=== PATIENT | male | born 1970 | race Caucasian/White ===

== ENCOUNTER 2018-07-12 10:59 | Emergency (ER) | payer SELFPAY ==
[~2018-07-12] VITALS: Ht 175.3 cm; Wt 70.3 kg
[2018-07-12 11:05] VITALS: BP 152/100
[2018-07-12] MEDS ORDERED: HYDR25TA PO (11:33)
[2018-07-12] MEDS ORDERED: PERM60CR12 TP (11:33)
--- NOTE | 2018-07-12 11:34 | PHYS DOC ---
Past History Past Medical History: Depression Past Surgical History: No Surgical History Smoking: Less than 1pk/day Alcohol Use: None Drug Use: None Adult General Chief Complaint Chief Complaint: INSECT BITE HPI HPI Patient is a 47 year old male who presents with complaining of pruritic rash for 2 or 3 weeks that gradually getting force. Patient complaining of increasing of itching during the night. Patient states 2 other family members had the same rash. Review of Systems Review of Systems Constitutional: Denies fever or chills [] Eyes: Denies change in visual acuity, redness, or eye pain [] HENT: Denies nasal congestion or sore throat [] Respiratory: Denies cough or shortness of breath [] Cardiovascular: No additional information not addressed in HPI [] GI: Denies abdominal pain, nausea, vomiting, bloody stools or diarrhea [] : Denies dysuria or hematuria [] Musculoskeletal: Denies back pain or joint pain [] Integument: Reports rash and itching Neurologic: Denies headache, focal weakness or sensory changes [] Endocrine: Denies polyuria or polydipsia [] All other systems were reviewed and found to be within normal limits, except as documented in this note. Allergies Allergies Allergies Coded Allergies Type Severity Reaction Last Updated Verified bee venom (honey bee) Allergy Unknown 09/27/13 Yes Physical Exam Physical Exam Constitutional: Well developed, mild distress, non-toxic appearance. [] HENT: Normocephalic, atraumatic Eyes: PERRLA, EOMI, conjunctiva normal, no discharge. [] Neck: Normal range of motion, no tenderness, supple, no stridor. [] Cardiovascular:Heart rate regular rhythm, no murmur [] Lungs & Thorax: Bilateral breath sounds clear to auscultation [] Skin: Warm, dry, pruritic rash in the extremities and trunk Back: No tenderness, no CVA tenderness. [] Extremities: No tenderness, no cyanosis, no clubbing, ROM intact, no edema. [] Neurologic: Alert and oriented X 3, normal motor function, normal sensory function, no focal deficits noted. [] Psychologic: Affect normal, judgement normal, mood normal. [] EKG EKG [] Radiology/Procedures Radiology/Procedures [] Course & Med Decision Making Course & Med Decision Making discharge: I've spoken with the patient and/or caregivers. I've explained the patient's condition, diagnosis and treatment plan based on information available to me at this time. I've answered the patient's and/or caregivers questions and addressed any concerns. The patient and/or caregivers have a good understanding the patient's diagnosis, condition and treatment plan as can be expected at this point. Vital signs have been stabilized. The patient's condition is stable for discharge from the emergency department. The patient will pursue further outpatient evaluation with her primary care provider or other designated consulting physician as outlined in the discharge instructions. Patient and/or caregivers are agreeable to this plan of care and follow-up instructions have been explained in detail. The patient and/or caregivers have received these instructions in written format and expressed understanding of these discharge instructions. The patient and her caregivers are aware that if any significant change in condition or worsening of symptoms should prompt him to immediately return to this of the closest emergency department. If an emergent department is not readily available I would encourage him to call 911. Dragon Disclaimer Dragon Disclaimer This electronic medical record was generated, in whole or in part, using a voice recognition dictation system. Departure Departure: Impression: Primary Impression: Scabies Disposition: HOME, SELF-CARE (at 1131) Condition: STABLE Referrals: PCP,NO (PCP) Patient Instructions: Scabies Additional Instructions: Follow-up with your primary care physician in 3-5 days Return to ER if not getting better Scripts Hydroxyzine Hcl (HYDROXYZINE HCL) 25 Mg Tablet 1 TAB PO TID PRN for ITCHING, #30 TAB Prov: STACIE EDWARDS MD 07/12/18 Permethrin (PERMETHRIN) 60 Gm Cream..g. 1 CHAO TP ONCE, #60 GM 1 Refill Prov: STACIE EDWARDS MD 07/12/18 STACIE EDWARDS MD Jul 12, 2018 11:33
== END 2018-07-12 11:47 | disposition home or self-care (01) ==
LOC: ER 10:59
DX: B86 Scabies (principal); F17.200 Nicotine dependence, unspecified, uncomplicated; Z91.030 Bee allergy status
CPT/HCPCS: 99283

== ENCOUNTER 2020-08-18 16:46 | Inpatient (IN) | payer SELFPAY ==
[~2020-08-18] VITALS: Ht 172.7 cm; Wt 64.8 kg
[~2020-08-18 16:46] MED LIST: HYDR25TA PO; PERM60CR12 TP
--- NOTE | 2020-08-18 17:21 | PHYS DOC ---
Past History Past Medical History: Depression, Diabetes (RANJAN BHANDARI MD) Past Surgical History: No Surgical History (RANJAN BHANDARI MD) Smoking: Less than 1pk/day Alcohol Use: None Drug Use: None (RANJAN BHANDARI MD) General Adult EDM: Chief Complaint: SYNCOPE HPI: HPI: Patient is a 49-year-old male who is in the parking lot at [facility] when he felt a lightening bolt-like sensation, pressure chest and then he says he passed out for 20 minutes. Patient does not endorse any seizure activity and has never had a headache like this before. Patient has been in his normal state of health other than having some allergy for the last couple months. Patient does not have any current shortness of breath but has some shortness of breath with the chest pain that was sharp and stabbing immediately prior to the syncopal event. Patient now only has some mild left-sided abdominal pain. His abdominal pain is worse with palpation and better with rest. (RANJAN BHANDARI MD) Review of Systems: Review of Systems: Constitutional: Denies fever or chills Eyes: Denies change in visual acuity HENT: Denies nasal congestion or sore throat Respiratory: Denies cough but has some transient shortness of breath Cardiovascular: Patient has some transient shortness of breath but denies edema GI: Patient has some mild left abdominal pain but no, nausea, vomiting, bloody stools or diarrhea : Denies dysuria Musculoskeletal: Denies back pain or joint pain Integument: Denies rash Neurologic: Denies headache, focal weakness or sensory changes Endocrine: Denies polyuria or polydipsia Lymphatic: Denies swollen glands Psychiatric: Denies depression or anxiety (RANJAN BHANDARI MD) Allergies: Allergies: Allergies Coded Allergies Type Severity Reaction Last Updated Verified venom-honey bee Allergy Unknown 09/27/13 Yes (RANJAN BHANDARI MD) Physical Exam: PE: Constitutional: Well developed, well nourished, no acute distress, non-toxic appearance. [] HENT: Normocephalic, atraumatic, bilateral external ears normal, no oral lesions, nose normal. [] Eyes: PERRLA, EOMI, conjunctiva normal, no discharge. [] Neck: Normal range of motion, no tenderness, supple, no stridor. [] Cardiovascular:Heart rate regular rhythm, peripheral pulses are intact, cap refill is less than 2 seconds Lungs & Thorax: Bilateral breath sounds clear, no respiratory distress Abdomen: soft, mild tenderness to the left side of the abdomen, no masses, no pulsatile masses. [] Skin: Warm, dry, no erythema, no rash. [] Back: No tenderness, no CVA tenderness. [] Extremities: No tenderness, no cyanosis, no clubbing, ROM intact, no edema. [] Neurologic: Alert and oriented X 3, normal motor function, normal sensory function, no focal deficits noted. [] Psychologic: Affect normal, judgement normal, mood normal. [] (RANJAN BHANDARI MD) Current Patient Data: Labs: Laboratory Tests Test 08/18/20 17:11 Glucose (Fingerstick) 370 mg/dL (70-99) H (RANJAN BHANDARI MD) Labs: Laboratory Tests Test 08/18/20 17:11 08/18/20 17:15 Glucose (Fingerstick) 370 mg/dL White Blood Count 5.9 x10^3/uL Red Blood Count 4.35 x10^6/uL Hemoglobin 13.5 g/dL Hematocrit 40.4 % Mean Corpuscular Volume 93 fL Mean Corpuscular Hemoglobin 31 pg Mean Corpuscular Hemoglobin Concent 33 g/dL Red Cell Distribution Width 12.8 % Platelet Count 225 x10^3/uL Neutrophils (%) (Auto) 68 % Lymphocytes (%) (Auto) 24 % Monocytes (%) (Auto) 6 % Eosinophils (%) (Auto) 2 % Basophils (%) (Auto) 1 % Neutrophils # (Auto) 4.0 x10^3uL Lymphocytes # (Auto) 1.4 x10^3/uL Monocytes # (Auto) 0.3 x10^3/uL Eosinophils # (Auto) 0.1 x10^3/uL Basophils # (Auto) 0.0 x10^3/uL D-Dimer (Meron) 0.60 mg/L Urine Collection Type Unknown Urine Color Yellow Urine Clarity Clear Urine pH 5.0 Urine Specific Rusk 1.020 Urine Protein 100 mg/dl Urine Glucose (UA) >=1000 mg/dL Urine Ketones (Stick) Neg mg/dL Urine Blood Mod Urine Nitrite Neg Urine Bilirubin Neg Urine Urobilinogen Dipstick 0.2 mg/dL Urine Leukocyte Esterase Neg Urine RBC 0 /HPF Urine WBC 0 /HPF Urine Squamous Epithelial Cells Few /LPF Urine Bacteria 0 /HPF Sodium Level 133 mmol/L Potassium Level 4.2 mmol/L Chloride Level 99 mmol/L Carbon Dioxide Level 25 mmol/L Anion Gap 9 Blood Urea Nitrogen 16 mg/dL Creatinine 1.3 mg/dL Estimated GFR (Cockcroft-Gault) 58.4 BUN/Creatinine Ratio 12 Glucose Level 338 mg/dL Lactic Acid Level 1.1 mmol/L Calcium Level 9.0 mg/dL Total Bilirubin 1.0 mg/dL Aspartate Amino Transf (AST/SGOT) 12 U/L Alanine Aminotransferase (ALT/SGPT) 20 U/L Alkaline Phosphatase 38 U/L Troponin I Quantitative 0.017 ng/mL Total Protein 6.7 g/dL Albumin 3.6 g/dL Albumin/Globulin Ratio 1.2 Lipase 800 U/L Urine Opiates Screen Neg Urine Methadone Screen Neg Urine Barbiturates Neg Urine Phencyclidine Screen Neg Urine Amphetamine/Methamphetamine Neg Urine Benzodiazepines Screen Neg Urine Cocaine Screen Neg Urine Cannabinoids Screen Pos Ethyl Alcohol Level < 10 mg/dL Urine Ethyl Alcohol Neg Current Medications Medications (Trade) Dose Ordered Sig/Leobardo Route PRN Reason Start Time Stop Time Status Last Admin Dose Admin Iohexol (Omnipaque 350 Mg/ml) 100 ml 1X ONCE IV 08/18/20 18:00 08/18/20 18:01 DC 08/18/20 17:58 Info (Do NOT chart on this entry -- for MONITORING) 1 each PRN DAILY PRN MC SEE COMMENTS 08/18/20 18:00 08/20/20 17:59 (IDA LAWRENCE DO) EKG: EKG: [] EKG interpreted by me normal sinus rhythm with rate 87 left axis deviation left anterior hemiblock, normal intervals, normal ST segments (RANJAN BHANDARI MD) EKG: EKG is normal sinus rhythm, rate 87, leftward axis, nonspecific ST segment changes, not STEMI (IDA LAWRENCE DO) Radiology/Procedures: Radiology/Procedures: [] (RANJAN BHANDARI MD) Radiology/Procedures: [address] [address] IMAGING REPORT Signed PATIENT: KORY COTTON ACCOUNT: [id number] : 1970 LOCATION: ER AGE: 49 SEX: M EXAM STATUS: REG ER ORD. PHYSICIAN: RANJAN BHANDARI MD REASON: SYNCOPE PROCEDURE: CT HEAD WO CONTRAST CT head without contrast PQRS statement: CT scans at this facility use dose reduction including either automated exposure control, iterative reconstructions, and /or weight based radiation dosing via mA and kV modification when appropriate to reduce radiation dose to as low as reasonably achievable. HISTORY: Syncope. FINDINGS: There is a subtle 2 cm hypodensity inferior left cerebellum hemisphere on images 4-5, it is uncertain if this is due to artifact however given that this is a focal asymmetry this raises the possibility of a true lesion either due to infarct or ill-defined mass. There is no associated mass effect or swelling. No cerebellar tonsil herniation or crowding at the foramen magnum. Remainder of the brain demonstrates no mass or infarct. No intracranial hemorrhage. No hydrocephalus. Orbits, mastoids and bones are unremarkable. IMPRESSION: Indistinct 2 cm hypodensity of the inferior left cerebellum. This may be a streak artifact from the skull base however given the focal asymmetric nature this also raises the possibility of an acute ischemic infarct or an ill-defined mass. There is no associated mass effect or swelling evident. This could be further assessed with MR imaging. Electronically signed by: Brant Wood MD (08/18/2020 6:13 PM) [facility] [place] DICTATED AND SIGNED BY: BRANT WOOD MD DATE: 08/18/201812 CC: RANJAN BHANDARI MD; PCP,NO; IDA LAWRENCE DO ~ [address] [address] IMAGING REPORT Signed PATIENT: KORY COTTON ACCOUNT: [id number] : 1970 LOCATION: ER AGE: 49 SEX: M EXAM STATUS: REG ER ORD. PHYSICIAN: RANJAN BHANDARI MD REASON: SYNCOPE PROCEDURE: PORTABLE CHEST 1V AP chest x-ray HISTORY: Syncope. COMPARISON: Chest x-ray September 27, 2013. FINDINGS: Heart size is normal. Mediastinal silhouette is normal. No pneumothorax, pulmonary opacities or pleural effusions. Bones are unremarkable. IMPRESSION: No acute process. Electronically signed by: Brant Wood MD (08/18/2020 6:20 PM) [facility] [place] DICTATED AND SIGNED BY: BRANT WOOD MD DATE: 08/18/201819 CC: RANJAN BHANDARI MD; PCP,NO; IDA LAWRENCE DO ~ [place] [address] IMAGING REPORT Signed PATIENT: KORY COTTON ACCOUNT: [id number] : 1970 LOCATION: ER AGE: 49 SEX: M EXAM STATUS: REG ER ORD. PHYSICIAN: RANJAN BHANDARI MD REASON: R/O TAD/AAA, SYNCOPE PROCEDURE: CT ANGIO CHEST W ABD PEL W/ Examination: CT ANGIO CHEST W ABD PEL W/ History: Pain, SYNCOPE, left flank pain Comparison/Correlation: None Findings: Axial images of the chest, abdomen, and pelvis were obtained following IV contrast. Imaging of the chest was performed according to pulmonary arteriography protocol. Evaluation of the abdomen and pelvis is limited due to motion on multiple images. Pulmonary arterial vasculature is normal with no thromboembolic disease. No infiltrate or effusion. No enlarged lymph nodes, pneumothorax, or suspicious pulmonary nodule. Note is made of accessory short blind-ending bronchus arising from the right side of the distal trachea. 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 Opacification of the thoracic aorta is not adequate for arteriographic assessment. Thoracic aortic morphology is otherwise unremarkable. Liver, spleen, pancreas, adrenal glands, and kidneys are normal. Moderate quantity of stool in colon noted. Appendix is normal. No bowel obstruction or extraluminal gas. Mild circumferential wall thickening of the urinary bladder is noted. No abdominal aortic aneurysm. Opacification of the abdominal aorta with contrast is not of arteriographic density. No enlarged abdominal or pelvic lymph nodes. No ascites or pelvic free fluid. Bilateral L5 pars interarticularis fractures are present. Minimal antral listhesis of L5 on S1 noted. Impression: No PE or infiltrate. Minimal diverticulosis. 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 Bilateral L5 pars interarticularis fractures with mild anterolisthesis of L5 over S1. Aorta is grossly unremarkable. Opacification of the aorta is not of arteriographic quality. No dissection suggested. No aneurysm seen. If strong clinical concern is present, repeat imaging or other further evaluation would be advised. PQRS Compliance Statement: One or more of the following individualized dose reduction techniques were utilized for this examination: 1. Automated exposure control 2. Adjustment of the mA and/or kV according to patient size 3. Use of iterative reconstruction technique Electronically signed by: Karl Mcdonnell MD (08/18/2020 6:41 PM) [facility] (IDA LAWRENCE DO) Heart Score: Risk Factors: Risk Factors: DM, Current or recent (<one month) smoker, HTN, HLP, family history of CAD, obesity. Risk Scores: Score 0 - 3: 2.5% MACE over next 6 weeks - Discharge Home Score 4 - 6: 20.3% MACE over next 6 weeks - Admit for Clinical Observation Score 7 - 10: 72.7% MACE over next 6 weeks - Early Invasive Strategies (RANJAN BHANDARI MD) Course & Med Decision Making: Course & Med Decision Making Pertinent Labs and Imaging studies reviewed. (See chart for details) [] 49-year-old male presents with syncope event. Patient has some left abdominal pain on exam. Patient will get a CT angiogram to rule out aortic catastrophe. Labs and CTs are pending and care was signed out to Dr. Lawrence. (RANJAN BHANDARI MD) Course & Med Decision Making 1800 Care of patient assumed at shift change 1855 Dr. Martines is the accepting physician. Patient will admitted for treatment of pancreatitis as well as syncope. Patient has a known history of diabetes but has not been compliant with his diabetes medication. We will cycle his cardiac enzymes. As requested we will place patient on a clear liquid diet. Patient is alert awake with out any focal deficits or lateralizing signs. (IDA LAWRENCE DO) Dragon Disclaimer: Dragon Disclaimer: This electronic medical record was generated, in whole or in part, using a voice recognition dictation system. (RANJAN BHANDARI MD) Departure Departure: Impression: Primary Impression: Syncope Qualified Codes: R55 - Syncope and collapse Additional Impressions: Pancreatitis Qualified Codes: K85.90 - Acute pancreatitis without necrosis or infection, unspecified Hyperglycemia Disposition: ADMITTED INPT THIS HOSP Admitting Physician: Alok Martines (IDA LAWRENCE DO) Condition: STABLE Referrals: PCP,DEANA (PCP) RANJAN BHANDARI MD Aug 18, 2020 17:21 IDA LAWRENCE DO Aug 18, 2020 17:54
--- NOTE | 2020-08-18 17:26 | EKG ---
[address] [address] Test Date: 2020-08-18 Test Time: 17:13:12 Pat Name: KORY COTTON Department: Room: Gender: M Painting Manager: MILAD : 1970 Requested By: RANJAN BHANDARI Order Number: [id number] Reading MD: Measurements Intervals [place] Rate: 87 P: 48 MT: 140 QRS: -31 QRSD: 92 T: 57 QT: 366 QTc: 446 Interpretive Statements SINUS RHYTHM ABNORMAL LEFT AXIS DEVIATION LEFT ANTERIOR FASCICULAR BLOCK QRS(T) CONTOUR ABNORMALITY CONSISTENT WITH ANTEROSEPTAL INFARCT PROBABLY OLD ABNORMAL ECG RI6.02 No previous ECG available for comparison
[2020-08-18 17:47] LABS: BASO % 1 % (0-3); EOS # 0.1 x10^3/uL (0.0-0.7); EOS % 2 % (0-3); HEMATOCRIT 40.4 % (39.0-53.0); HEMOGLOBIN 13.5 g/dL (13.0-17.5); LYMPH # 1.4 x10^3/uL (1.0-4.8); LYMPH % 24 % (24-48); MEAN CORPUSCULAR HEMOGLOBIN 31 pg (25-35); MEAN CORPUSCULAR HGB CONC 33 g/dL (31-37); MEAN CORPUSCULAR VOLUME 93 fL (79-100); MONO # 0.3 x10^3/uL (0.0-1.1); MONO % 6 % (0-9); NEUT % 68 % (31-73); PLATELET COUNT 225 x10^3/uL (140-400); RED BLOOD COUNT 4.35 x10^6/uL (4.30-5.70); RED CELL DISTRIBUTION WIDTH 12.8 % (11.5-14.5); WHITE BLOOD COUNT 5.9 x10^3/uL (4.0-11.0)
[2020-08-18 17:56] LABS: BARBITURATES NEG (NEG); BENZODIAZEPINES NEG (NEG); CANNABINOIDS POS (NEG); COCAINE NEG (NEG); METHADONE NEG (NEG); OPIATES NEG (NEG); PHENCYCLIDINE NEG (NEG)
[2020-08-18 17:57] LABS: AMPHETAMINE/METHAMPHETAMINE NEG (NEG)
[2020-08-18] MEDS ORDERED: CONTRAST GIVEN. MC PRN (18:00)
[2020-08-18] MEDS ORDERED: IOHEXOL 350 MG/ML 100 ML VIAL. IV ONE (18:00)
[2020-08-18 18:11] LABS: CREATININE 1.3 mg/dL (0.7-1.3); GFR 58.4; POTASSIUM 4.2 mmol/L (3.5-5.1)
[2020-08-18 18:16] LABS: ALBUMIN 3.6 g/dL (3.4-5.0); ALBUMIN/GLOBULIN RATIO 1.2 (1.0-1.7); TOTAL PROTEIN 6.7 g/dL (6.4-8.2)
--- NOTE | 2020-08-18 18:16 | RAD ---
CT head without contrast PQRS statement: CT scans at this facility use dose reduction including either automated exposure control, iterative reconstructions, and /or weight based radiation dosing via mA and kV modification when appropriate to reduce radiation dose to as low as reasonably achievable. HISTORY: Syncope. FINDINGS: There is a subtle 2 cm hypodensity inferior left cerebellum hemisphere on images 4-5, it is uncertain if this is due to artifact however given that this is a focal asymmetry this raises the possibility of a true lesion either due to infarct or ill-defined mass. There is no associated mass effect or swelling. No cerebellar tonsil herniation or crowding at the foramen magnum. Remainder of the brain demonstrates no mass or infarct. No intracranial hemorrhage. No hydrocephalus. Orbits, mastoids and bones are unremarkable. IMPRESSION: Indistinct 2 cm hypodensity of the inferior left cerebellum. This may be a streak artifact from the skull base however given the focal asymmetric nature this also raises the possibility of an acute ischemic infarct or an ill-defined mass. There is no associated mass effect or swelling evident. This could be further assessed with MR imaging. Electronically signed by: Jewel Wood MD (08/18/2020 6:13 PM) [facility]
--- NOTE | 2020-08-18 18:24 | RAD ---
AP chest x-ray HISTORY: Syncope. COMPARISON: Chest x-ray September 27, 2013. FINDINGS: Heart size is normal. Mediastinal silhouette is normal. No pneumothorax, pulmonary opacities or pleural effusions. Bones are unremarkable. IMPRESSION: No acute process. Electronically signed by: Jewel Wood MD (08/18/2020 6:20 PM) [facility]
[2020-08-18 18:31] LABS: BACTERIA,URINE 0 /HPF (0-FEW); BILIRUBIN,URINE NEG (NEG); CLARITY,URINE CLEAR; COLOR,URINE YELLOW; GLUCOSE,URINE >=1000 mg/dL (NEG); NITRITE,URINE NEG (NEG); RBC,URINE 0 /HPF (0-2); SQUAMOUS EPITHELIAL CELL,UR FEW /LPF; UROBILINOGEN,URINE 0.2 mg/dL (0.2 mg/dL); WBC,URINE 0 /HPF (0-4)
--- NOTE | 2020-08-18 18:44 | RAD ---
Examination: CT ANGIO CHEST W ABD PEL W/ History: Pain, SYNCOPE, left flank pain Comparison/Correlation: None Findings: Axial images of the chest, abdomen, and pelvis were obtained following IV contrast. Imaging of the chest was performed according to pulmonary arteriography protocol. Evaluation of the abdomen and pelvis is limited due to motion on multiple images. Pulmonary arterial vasculature is normal with no thromboembolic disease. No infiltrate or effusion. No enlarged lymph nodes, pneumothorax, or suspicious pulmonary nodule. Note is made of accessory short blind-ending bronchus arising from the right side of the distal trachea. 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 Opacification of the thoracic aorta is not adequate for arteriographic assessment. Thoracic aortic morphology is otherwise unremarkable. Liver, spleen, pancreas, adrenal glands, and kidneys are normal. Moderate quantity of stool in colon noted. Appendix is normal. No bowel obstruction or extraluminal gas. Mild circumferential wall thickening of the urinary bladder is noted. No abdominal aortic aneurysm. Opacification of the abdominal aorta with contrast is not of arteriographic density. No enlarged abdominal or pelvic lymph nodes. No ascites or pelvic free fluid. Bilateral L5 pars interarticularis fractures are present. Minimal antral listhesis of L5 on S1 noted. Impression: No PE or infiltrate. Minimal diverticulosis. 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 Bilateral L5 pars interarticularis fractures with mild anterolisthesis of L5 over S1. Aorta is grossly unremarkable. Opacification of the aorta is not of arteriographic quality. No dissection suggested. No aneurysm seen. If strong clinical concern is present, repeat imaging or other further evaluation would be advised. PQRS Compliance Statement: One or more of the following individualized dose reduction techniques were utilized for this examination: 1. Automated exposure control 2. Adjustment of the mA and/or kV according to patient size 3. Use of iterative reconstruction technique Electronically signed by: Karl Mcdonnell MD (08/18/2020 6:41 PM) [facility]
[2020-08-18] MEDS ORDERED: ONDANSETRON PF 4 MG/2 ML VIAL. IVP PRN (19:15)
--- NOTE | 2020-08-18 20:10 | NUR ---
PATIENT ARRIVED TO UNIT VIA EMS. PATIENTS VS OBTAINED AND ARE STABLE. PATIENT IS ORIENTED TO UNIT AND PROCEDURE. PATIENT IS PLEASANT AND COOPERATIVE. TELE MONITOR APPLIED AND PATIENT IS OFFERED FOOD AND DRINK AND ACCEPTS. PATIENT IS RESTING IN ROOM AT THIS TIME. WILL CONTINUE TO MONITOR.
[2020-08-18 23:00] VITALS: BP 159/92
[2020-08-19 06:09] VITALS: BP 123/84
--- NOTE | 2020-08-19 08:51 | HP ---
ADMIT DATE: 08/18/2020 ATTENDING PHYSICIAN: Dr. Esteves. CHIEF COMPLAINT: Chest pain and near syncope. HISTORY OF PRESENT ILLNESS: The patient is a 49-year-old gentleman who works at [employer], returning shopping cart back to the store, he felt a lightning bolt sensation, chest pressure and he really did not pass out, but he got weak and went to the ground for about 20 minutes before he regained his composure. No seizure activity. He is a smoker. He is diabetic, but he is noncompliant. He presented to the ED. The workup in the ED showed no acute strokes. CT of the chest and abdomen showed no evidence of blockage or pathology. He did have a slight elevation of lipase, etiology is unclear, it was 800. His EKG is nondiagnostic. Chest x-ray was clear. Cardiac enzymes showed ____ of 0.02, which is nonischemic. He was admitted for observation and further treatment. PAST MEDICAL HISTORY: Significant for depression, also type 2 diabetes. He has been diabetic for 7 years. He was prescribed metformin, but due to cost, he states that he has been unable to get this filled. He is a smoker, pack a day. He denies any drug use. He says he drinks alcohol intermittently, but I suspect he may be drinking more. PRESCRIPTION MEDICATIONS: None. ALLERGIES: He has allergies to [employer] HONE[employer]. FAMILY HISTORY: Noncontributory. SOCIAL HISTORY: He is a smoker as noted. Alcohol use. He lives with his and 4 children. REVIEW OF SYSTEMS: Significant for lots of stress at work. No fevers, chills, COVID exposure, chest pain or palpitation. All other systems reviewed and determined to be negative. PHYSICAL EXAMINATION: GENERAL: When I saw him, this is a pleasant young male. INITIAL VITAL SIGNS: Showed a blood pressure 123/84, pulse is 88 and regular, oxygen saturation 97% on room air, temperature 97.9 degrees Fahrenheit. HEENT: Head is without trauma. Pupils are reactive. Sclerae nonicteric. Oropharynx clear. NECK: Supple, no bruits identified. LUNGS: Otherwise clear. CARDIOVASCULAR: Showed regular heart tones. No gallops. ABDOMEN: Soft, scaphoid, nontender, no organomegaly. Bowel sounds are hypoactive. EXTREMITIES: Showed no cyanosis or edema. NEUROLOGIC: Focally intact. Speech is fluent. No deficits. SKIN: Warm and dry. PERTINENT LABORATORY AND X-RAY STUDIES: Imaging shows no acute fractures or blockage. Nonfasting blood sugar 351, repeated was 252. Hemoglobin 13.5 g, white count 5900. Electrolytes within normal range. Creatinine is 1.3 mg/dL. ASSESSMENT: 1. A 49-year-old gentleman with poorly controlled diabetes. 2. Episode of chest pain, etiology is unclear, coronary ischemia ruled out. 3. Mild pancreatitis without CT evidence. 4. Underlying depression. 5. Chronic obstructive pulmonary disease. PLAN: 1. Observation status. 2. Serial enzymes. 3. Pain control. 4. Restart his metformin. SUSAN ESTEVES MD DR: SHARRON/joann JOB#: [id number] / [id number]
[2020-08-19] MEDS ORDERED: FLU VACC QS 2020-21(6MOS+)/PF 0.5 ML SYRINGE. VAX IM ONE (09:00)
--- NOTE | 2020-08-19 09:50 | NUR ---
NURSING NOTE: DISCHARGE PT DISCHARGED HOME VIA AMBULATION. VERBAL AND WRITTEN DISCHARGE INSTRUCTIONS GIVEN, VERBAL UNDERSTANDING RECEIVED. NO FURTHER QUESTIONS, NO COMPLICATIONS. RENATO ERAZO
--- NOTE | 2020-08-19 11:46 | DS ---
DATE OF DISCHARGE: 08/19/2020 ATTENDING PHYSICIAN: Dr. Esteves. FINAL DISCHARGE DIAGNOSES: 1. Atypical chest pain, coronary ischemia ruled out. 2. Mild pancreatitis biochemically. 3. Chronic obstructive pulmonary disease. 4. Alcohol use. 5. Poorly controlled type 2 diabetes mellitus with noncompliance. HISTORY AND PHYSICAL: This 49-year-old gentleman who is a diabetic. He has not taken any meds for several years due to what he says is cost. He smokes. He drinks. He was admitted with atypical chest pain and an episode causing him to be weak. PHYSICAL EXAMINATION: Please see the dictated note. PERTINENT LABORATORY AND X-RAY STUDIES: CT of the chest ruled out any blood clots. No obvious evidence of pancreatitis. He did have a slightly elevated lipase of 800. Nonfasting blood sugar was 252. Hemoglobin maintained at 13.5 g/dL with a white count of 5900. Cardiac enzymes 2 sets were negative for coronary necrosis. COURSE IN THE HOSPITAL: He was admitted. Pain subsided. Diet was advanced. I wrote him a script for metformin. He was doing better. He wanted to go home the next day, he was stable. He had no further chest pain. Vital signs showed a blood pressure of 123/84. Pulse and respirations were normal. He was afebrile. I gave him a script for metformin. Whether or not he will take it remains to be seen. I suggested a followup visit with the primary care doctor. Strong encouragement to quit alcohol and tobacco. Whether or not he will quit drinking or smoking remains to be seen. In any event, the patient was discharged from our hospital in stable condition with explicit instructions and followup care. SUSAN ESTEVES MD DR: SHARRON/joann JOB#: [id number] / [id number]
== END 2020-08-19 09:57 | disposition home or self-care (01) | DRG 313 ==
LOC: ER 16:46 → 1 SOUTH 19:50
PROVIDERS: ADMIT Hospitalist; ATTEND Hospitalist
DX: R07.89 Other chest pain (principal); E11.65 Type 2 diabetes mellitus with hyperglycemia; F17.200 Nicotine dependence, unspecified, uncomplicated; F32.9 Major depressive disorder, single episode, unspecified; J44.9 Chronic obstructive pulmonary disease, unspecified; M43.16 Spondylolisthesis, lumbar region; Z91.19 Patient's noncompliance with other medical treatment and regimen
CPT/HCPCS: 36415; 70450; 71045; 71275; 74177; 80053; 80307; 81001; 82947; 83605; 83690; 84484; 85025; 85379; 90471; 90686; 93005; G0480; Q9967; 99285-25